=== PATIENT | male | born 1985 | race Caucasian/White ===

== ENCOUNTER 2019-11-23 17:13 | Emergency (ER) | payer SELFPAY ==
[~2019-11-23] VITALS: Ht 195.6 cm; Wt 150.0 kg
--- OUTSIDE RECORDS SUMMARY | 2019-11-23 17:18 | XMS REPORT | Continuity of Care Document ---
Author Author [facility] Organization [facility] Address [facility] [address] [place] [phone] Phone Unavailable Support Name Relationship Address Phone MARTY JACKSON MD Caregiver [address] [place] [phone] Unavailable JODY JUSTINO Next Of Kin [address] [address] Insurance Providers Payer Name Policy Number Subscriber Name Relationship Workers Compensation T- Vince Arthur 18 Self / S beata As Patient Advance Directives Directive Response Recorded Date/Time Advance Directives No 01/04/17 5:19pm Living Will No 01/04/17 5:19pm Health Care Proxy No 01/04/17 5:19pm Power of Machinist 2Nd Shift for Health Care No 5:19pm Organ, Tissue, or Eye Donor Yes 01/04/17 5:1 8pm Do you have a signed organ donor card? No 0 01/04/17 5:18pm Chief Complaint and Reason for Visit Chief Complaint ANKLE PAIN Reason for Visit [id number] Problems Active Problems Medical Problem Onset Date Status Left ankle sprain Unknown Acute Medications No medication information available. Social History Social History Problem Response Recorded Date/Addy e Alcohol Use none 01/04/2017 6:32pm Hospital Discharge Instructions No hospital discharge instructions. Plan of Care Discharge Date 01/04/17 6:32pm Condition at Discharge Stable Instructions/Education Provided Ankle Sprain (ED) Prescriptions See Medication Section Referrals RIAZ NORIEGA M.D - Additional Instructions/Education Apply ice frequently , and keep elevated whenever possible. Return to ER if needed, for problems or concerns. Follow up with Dr. Noriega--or orthopedist of your choosing--if not steadily improving. Functional Status Query Response Date Recorded Patient Behavior Cooperative Appropriate January 04, 2017 5:20pm Allergies, Adverse Reactions, Alerts No allergy information available. Immunizations Name Given Type Hx Influenza Vaccination No Historical Hx Pneumococcal Vaccination No Historical Vital Signs Acute Vital Signs Vital Response Date/Time Temperature (Fahrenheit) 98.6 degrees F (97.6 - 99.5) 2016 5:20pm Temperature Source Temporal Artery 01/04/2017 5:20pm Pulse Rate (adult) 94 bpm (60 - 90) 01/04/2017 6:25pm Respiratory Rate 18 bpm (12 - 24) 01/04/2017 6:25pm Blood Pressure 141/82 mm Hg 01/04/2017 6:25pm O2 Sat by Pulse Oximetry 97 % (90 - 100) 01/04/2017 6:25 pm Oxygen Delivery Method 01/04/2017 6:25pm Height 6 ft 5 in Weight 330 lb Body Mass Index 39.0 kg/m^2 Results No known relevant diagnostic tests, laboratory data and/or discharge summary. Procedures Procedure Status Date Provider(s) X-ray of left ankle, three or more views Completed 7 MARTY JACKSON MD Encounters Encounter Location Arrival/Admit Date Discharge/Depart Date Attending Provider Departed Emergency Room [place] 01/04/17 5:17pm 01/04/17 6:32p m MARTY JACKSON MD Recent Diagnosis
--- NOTE | 2019-11-23 17:29 | ED Trauma-Multisystem ---
General Stated Complaint: FALL/HEAD INJ Source of Information: Patient Exam Limitations: No Limitations History of Present Illness Date Seen by Provider: November 23, 2019 Time Seen by Provider: 17:26 Initial Comments To ER by private vehicle from home with reports of head injury. 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 It started bucking, in an attempt to get away from the horse he was backing up, tripped and fell backwards hitting the back of his head on hard dirt. He loss of consciousness for only a few seconds. Initially had some nausea but none now. He complains of some pain to the neck, headache and right posterior shoulder over the scapula. No complaints of pain to the chest abdomen pelvis or extremity. Occurred: Just Prior to Arrival Severity: Moderate Pain/Injury Location: Head, Upper Extremity Loss of Consciousness: Brief (Seconds) Associated Symptoms (Fall): Headache, Neck Pain Allergies and Home Medications Home Medications Ondansetron HCl 4 Mg Tablet, 4 MG PO Q4H PRN for NAUSEA/VOMITING Prescribed by: LILIANA RAY on 11/23/19 [id number] Patient Home Medication List Home Medication List Reviewed: Yes Review of Systems Review of Systems Constitutional: see HPI Eyes: No Symptoms Reported Ears: No Symptoms Reported Nose: No Symptoms Reported Mouth: No Symptoms Reported Throat: No Symptoms to Report Respiratory: no symptoms reported Cardiovascular: No Symptoms Reported Genitourinary: no symptoms reported Musculoskeletal: see HPI, neck pain Skin: no symptoms reported Psychiatric/Neurological: No Symptoms Reported, Headache Past Hxmrhya-Pvjnct-Ajzdhh Hx Patient Social History Recent Foreign Travel: No Contact w/Someone Who Travel: No Physical Exam Height, Weight, BMI Height: '" Weight: lbs. oz. kg; BMI Method: General Appearance: No Apparent Distress, WD/WN, Other (covered in dirt alert and oriented GCS 15 no cadet sign no hemotympanum) Head: No Evidence of Injury; No Active Bleeding, No Cadet's Sign, No Contusions Eyes: Bilateral Eye Normal Inspection, Bilateral Eye PERRL, Bilateral Eye EOMI Ears, Nose, Throat: Hearing Grossly Normal, No Evidence of ENT Injury Neck: Full Range of Motion, Normal Inspection Respiratory: No Accessory Muscle Use, No Respiratory Distress Gastrointestinal: Normal Bowel Sounds, Non Tender, Soft Extremity: Normal Capillary Refill, Normal Inspection Neurologic/Psychiatric: Alert, Oriented x3 Skin: Normal Color, Warm/Dry [place] Coma Score Best Eye Response (James): (4) Open Spontaneously Best Verbal Response (James): (5) Oriented Best Motor Response ([place]): (6) Obeys Commands James Total: 15 Progress/Results/Core Measures Results/Orders My Orders Orders - LILIANA RAY APRN Ct Head/Cervical Spine Wo (11/23/19 17:25) Chest 1 View, Ap/Pa Only (11/23/19 17:25) Shoulder, Right, 3 Views (11/23/19 17:25) Diagnostic Imaging Diagonstic Imaging: CT Comments NAME: [facility] REC#: [id number] PT STATUS: REG ER : 1985 PHYSICIAN: LILIANA RAY APRN ADMIT DATE: 11/23/19/ER Draft Date of Exam:11/23/19 CT HEAD/CERVICAL SPINE WO PROCEDURE: CT head and CT cervical spine without contrast. TECHNIQUE: Multiple contiguous axial images were obtained through the brain and cervical spine without the use of intravenous contrast. Sagittal and coronal reformations through the cervical spine were then performed. Auto Exposure Controls were utilized during the CT exam to meet ALARA standards for radiation dose reduction. INDICATION: Fall. Trauma. COMPARISON: No comparison available. FINDINGS: CT head: There is no CT finding of an acute intracranial abnormality. There is no evidence of intracranial hemorrhage. There is no intracranial mass effect or shift. There is no hydrocephalus. There is no abnormal extra-axial fluid collection. Cabezas-white matter differentiation appears maintained. There is no abnormal low density within the basal ganglia or within the vamsi. The mastoid air cells are clear. The left are hyperpneumatized. There is no fluid level within the paranasal sinuses. Orbital contents unremarkable. There is no acute calvarial abnormality. CT cervical spine: Alignment appears appropriate. There is normal alignment of the craniocervical junction. There are normal relationships of the lateral masses of C1 and C2. The facets are normally aligned. There is no facet joint or disc space widening. The vertebral body heights appear maintained. There are either remote fractures or unfused ossification centers in the spinous processes of C7, T1 and T2. No acute fracture line is evident. There is no acute vertebral body fracture demonstrated. The lung apices appear clear. No upper rib fracture evident. Soft tissues of the neck demonstrate no acute process. IMPRESSION: 1. No CT evidence of an acute intracranial abnormality. 2. Irregularity of the spinous processes of C7, T1 and T2 may relate to remote spinous process fractures or non-fused ossification centers. These are not believed to be reflective of acute fractures. 3. Cervical spine alignment appears appropriate. Vertebral body heights maintained without vertebral body or facet fracture. There is no facet joint or disc space widening. Dictated on workstation # [id number] Dict: 11/23/19 1744 Trans: 11/23/19 1809 [facility] [id number] Interpreted by: MARTY SCOTT MD Electronically signed by: Departure Communication (Admissions) Rigid cervical collar removed at 1815 Impression Primary Impression: Concussion Qualified Codes: S06.0X1A - Concussion with loss of consciousness of 30 minutes or less, initial encounter Disposition: HOME, SELF-CARE Condition: Stable Departure-Patient Inst. Decision time for Depature: 18:12 Referrals: NO,LOCAL PHYSICIAN (PCP/Family) Primary Care Physician Patient Instructions: Concussion in Adults Add. Discharge Instructions: 1. Return to ER for any concerns 2. Headache dizziness nausea may stick around for a few days, you can take nausea medication as needed, the headache can be controlled with Tylenol and ibuprofen. Follow-up with your doctor later this week for recheck. Scripts Ondansetron HCl (Ondansetron HCl) 4 Mg Tablet 4 MG PO Q4H PRN for NAUSEA/VOMITING, #10 TAB Prov: LILIANA RAY APRN 11/23/19 LILIANA RAY APRN November 23, 2019 17:29
--- NOTE | 2019-11-23 17:59 | Diagnostic Imaging Report ---
EXAMINATION: Portable chest. INDICATION: Fall. FINDINGS: The lungs demonstrate no focal infiltrate, consolidation or finding of a pleural collection. There is no pneumothorax. Heart size and mediastinal contours are appropriate. Pulmonary vascularity appears normal. There is no identified fracture. IMPRESSION: 1. No radiographic evidence of an acute cardiopulmonary process. 2. No identified fracture. Dictated by: Dictated on workstation # [id number]
--- NOTE | 2019-11-23 17:59 | Diagnostic Imaging Report ---
EXAMINATION: Right shoulder series. INDICATION: Fall. FINDINGS: Glenohumeral joint and AC joint relationship appears appropriate. The proximal humerus demonstrates no fracture. Humeral head morphology is appropriate. There is no finding of fracture of the clavicle. Scapula unremarkable. No rib fracture identified. IMPRESSION: Negative radiographs of the right shoulder. Dictated by: Dictated on workstation # [id number]
--- NOTE | 2019-11-23 18:09 | Diagnostic Imaging Report ---
PROCEDURE: CT head and CT cervical spine without contrast. TECHNIQUE: Multiple contiguous axial images were obtained through the brain and cervical spine without the use of intravenous contrast. Sagittal and coronal reformations through the cervical spine were then performed. Auto Exposure Controls were utilized during the CT exam to meet ALARA standards for radiation dose reduction. INDICATION: Fall. Trauma. COMPARISON: No comparison available. FINDINGS: CT head: There is no CT finding of an acute intracranial abnormality. There is no evidence of intracranial hemorrhage. There is no intracranial mass effect or shift. There is no hydrocephalus. There is no abnormal extra-axial fluid collection. Cabezas-white matter differentiation appears maintained. There is no abnormal low density within the basal ganglia or within the vamsi. The mastoid air cells are clear. The left are hyperpneumatized. There is no fluid level within the paranasal sinuses. Orbital contents unremarkable. There is no acute calvarial abnormality. CT cervical spine: Alignment appears appropriate. There is normal alignment of the craniocervical junction. There are normal relationships of the lateral masses of C1 and C2. The facets are normally aligned. There is no facet joint or disc space widening. The vertebral body heights appear maintained. There are either remote fractures or unfused ossification centers in the spinous processes of C7, T1 and T2. No acute fracture line is evident. There is no acute vertebral body fracture demonstrated. The lung apices appear clear. No upper rib fracture evident. Soft tissues of the neck demonstrate no acute process. IMPRESSION: 1. No CT evidence of an acute intracranial abnormality. 2. Irregularity of the spinous processes of C7, T1 and T2 may relate to remote spinous process fractures or non-fused ossification centers. These are not believed to be reflective of acute fractures. 3. Cervical spine alignment appears appropriate. Vertebral body heights maintained without vertebral body or facet fracture. There is no facet joint or disc space widening. Dictated by: Dictated on workstation # [id number]
[2019-11-23] MEDS ORDERED: ONDA-105 PO (18:14)
--- NOTE | 2019-11-23 18:15 | NUR ---
C-COLLAR REMOVED BY LILIANA RAY APRN AT 1815.
[2019-11-23 18:23] VITALS: BP 120/59
== END 2019-11-23 18:23 | disposition home or self-care (01) ==
LOC: ER 17:15
DX: S06.0X1A Concussion with loss of consciousness of 30 minutes or less, initial encounter (principal); R40.2142 Coma scale, eyes open, spontaneous, at arrival to emergency department; R40.2252 Coma scale, best verbal response, oriented, at arrival to emergency department; R40.2362 Coma scale, best motor response, obeys commands, at arrival to emergency department; W01.198A Fall on same level from slipping, tripping and stumbling with subsequent striking against other object, initial encounter
CPT/HCPCS: 70450; 71045; 72125; 73030